=== PATIENT | male | born 1980 | race Caucasian/White ===

== ENCOUNTER 2017-03-27 01:03 | Emergency (ER) | payer OTHER ==
[~2017-03-27] VITALS: Ht 185.4 cm; Wt 100.0 kg
[2017-03-27 01:23] VITALS: BP 126/85; PULSE 68; RESP 16; O2SAT 99
--- NOTE | 2017-03-27 01:49 | ED.REPORT ---
HPI-Extremity Problem Lower Date of Service Mar 27, 2017 ED Provider: Wander Nunes DO This is a 36-year-old male with no known past medical history who presents to the emergency department for right foot pain. Patient woke up with significant pain at the top of his right foot with swelling and difficulty with moving ankle secondary to pain. He mentions he was in kickboxing class around 6:45 PM and when kicking he accidentally hit someone's elbow instead of pad. He did not have pain, swelling, bruising at that time. His pain is currently 6 out of 10 and is worse with movement or pressure. There is no radiation of the pain. He denies any numbness. He is having nausea secondary to pain otherwise denies vomiting, fever and chills. Nursing Notes Stated Complaint: RT FOOT INJURY Chief Complaint: Extremity Trauma Nursing Notes Reviewed: Yes Allergies: Coded Allergies: No Known Allergies (Unverified , 03/27/17) Scheduled PRN Naproxen (Naproxen) 500 Mg Tab 500 MG PO BID PRN PRN For Pain General Time Seen by MD: 01:35 Chief Complaint Foot injury right Hx Obtained From: Patient Past Medical History Past Medical History Denies Past Surgical History Denies Smoking History Never Smoker Social History Alcohol Use: "Social" Drug Use: Denies drug use Review of Systems Constitutional: Denies: Chills, Fever Musculoskeletal: Reports: Extremity pain, Extremity swelling, Joint pain Skin: Reports Swelling Neurologic: Denies: Numbness Complete sys rev & neg: except as marked. Respiratory: Denies: Shortness of breath Cardiovascular: Denies: Chest pain GI: Reports: Nausea, Denies: Abdominal pain, Vomiting Physical Exam Initial Vital Signs Vital Signs (First) Date Time Temp Pulse Resp B/P Pulse Ox O2 Delivery O2 Flow Rate FiO2 03/27/17 01:23 36.9 68 16 126/85 99 Room Air Initial VS: Reviewed General/Constitutional: Well-developed, Well-nourished Head / Eyes: Atraumatic, Normocephalic ENT: Conjunctiva normal, No scleral icterus Respiratory: Breath sounds normal, Clear to auscultation, No respiratory distress Cardiovascular: Regular rate & rhythm, Heart sounds normal, Intact distal pulses Abdomen / GI: Soft, Non-tender, No guarding, No distention Psychiatric: Mood/affect normal, Behavior normal, Normal thought content Right Foot: Positive: ROM reduced, Swelling present... (Mild), Tenderness present... (Severe, right lateral cuneiform), Warmth present General/Constitutional: Awake, Alert, No acute distress, Well appearing Respiratory / Chest: Atraumatic, Breath sounds NL, Breath sounds = bilat, No respiratory distress Cardiovascular: Heart rate NL, Regular rhythm, Heart sounds NL, No murmurs, Cap refill not delayed Periph CV / BP Differential: Positive: Peripheral pulses 3+ Skin: Warm, Intact Color / Condition: Positive: Skin doughy Neurologic: Oriented X3, Speech NL Sensory Deficit: Negative: Lower extremity L, Lower extremity R Re-Eval/Medical Decision Med Decision/Clinical Course This is a 36-year-old male with no known past medical history comes to the emergency department for right foot pain after kicking and elbow in kickboxing class. He has no numbness but range of motion is decreased secondary to pain. There is noticeable mild swelling with point tenderness at the right lateral cuneiform. He has good dorsalis pedis pulse with good capillary refill and sensation is intact on exam. Strength is decreased on right plantar and dorsiflexion secondary to pain. 3 view x-ray of right foot on wet read did not show any fractures. However I am concerned about ligamentous injury so will give camboot for right foot, give crutches and refer to outpatient orthopedics in case it starts to worsen. Will give naproxen and hydrocodone as needed for pain. Counseled Regarding: Diagnosis, Lab results, Need for follow-up, When/why to return to ED Discharge & Departure Impression: Primary Impression: Contusion of right foot Encounter type: initial encounter Qualified Code: S90.31XA - Contusion of right foot, initial encounter Additional Impression: Injury of ligament Disposition: Home Discharge Condition All VS Reviewed: Yes Condition: Stable Patient Instructions: Foot Contusion (ED) Additional Instructions: In the emergency department you were evaluated for right foot pain with x-rays. Based off of the x-rays there did not seem to be any evidence of a fracture. You likely have a foot contusion, however I am concerned for injury to your ligament in the foot. For this reason we have given you a cam boot and crutches. you should be nonweightbearing and use crutches for 1 week. Call orthopedics on Thursday and schedule an appointment. Take 1-2 [place] when in severe pain. Otherwise use naproxen 1-2 times daily as needed for moderate pain. Do not drink alcohol or drive when taking [place]. Referrals: Jc Vargas DO Attending Statement I took and H&P and concur with the note, assessment and plan. Normal xrays with significant pain. Foot immobilized. Will refer to ortho and have close follow up. Routine opiate warnings given. copies to: Jc Vargas Malik A DO Mar 27, 2017 01:49 Wandre Nunes DO Mar 27, 2017 03:19
[2017-03-27 02:10] VITALS: BP 128/86; PULSE 66; RESP 16; O2SAT 99
[2017-03-27] MEDS ORDERED: _HYDROcodone/APAP 5-325 mg Tablet PO PRN (02:40)
[2017-03-27] MEDS ORDERED: NPR500T PO (02:48)
[2017-03-27 03:12] VITALS: BP 126/86; PULSE 66; RESP 16; O2SAT 99
--- NOTE | 2017-03-27 08:29 | DRSVH ---
PROCEDURE: X-RAY RIGHT FOOT COMPLETE, MINIMUM THREE VIEWS ([id number]) INDICATIONS: right foot pain,KICKBOXING, DORSAL ASPECT TECHNIQUE: 3 views of the foot were acquired. COMPARISON: None. FINDINGS: Bones: Acute intra-articular fracture in the distal medial aspect of the proximal right fifth phalan x. Minimal articular surface step off. No further fractures. Mild talonavicular joint degenerative ch cuco with dorsal surface osteophyte. Soft tissues: No tibiotalar joint effusion. Achilles tendon appears normal. IMPRESSION: Minimally displaced intra-articular fracture in the distal medial aspect of the proximal right fifth phalanx. Dictated by: Blue Castillo M.D. on 03/27/2017 at 8:26 Approved by: Blue Castillo M.D. on 03/27/2017 at 8:28
== END 2017-03-27 03:13 | disposition home or self-care (01) ==
LOC: SED 01:03
DX: S90.31XA Contusion of right foot, initial encounter (principal); W50.1XXA Accidental kick by another person, initial encounter; Y93.75 Activity, martial arts; Y92.89 Other specified places as the place of occurrence of the external cause; Y99.8 Other external cause status